=== PATIENT | male | born 1965 | race Two or more races ===

== ENCOUNTER 2019-05-27 13:44 | Emergency (ER) | payer MEDICAID ==
[~2019-05-27] VITALS: Ht 160 cm; Wt 54.4 kg
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
[2019-05-27 14:27] VITALS: BP 145/81
--- NOTE | 2019-05-27 14:32 | NUR ---
ED Nurse Note: Pt's skin intact.
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
[2019-05-27] MEDS ORDERED: TYLENOL EXTRA500 MG ORAL (15:06)
[2019-05-27] MEDS ORDERED: AUGMENTIN 875-1 EAC1 ORAL (15:06)
[2019-05-27] MEDS ORDERED: ROBAXIN-500MG ORAL (15:06)
[2019-05-27] MEDS ORDERED: MUPIROCIN15 GM TOPIC (15:06)
[2019-05-27 15:18] VITALS: BP 140/78
--- NOTE | 2019-05-27 15:18 | NUR ---
ER DISCHARGE NOTE: Patient is cleared to be discharged per ERPA, pt is aox4, on room air, with stable vital signs. pt was given dc and prescription instructions, pt was able to verbalize understanding, pt id band removed. pt is able to ambulate with steady gait. pt took all belongings.
--- NOTE | 2019-05-27 16:04 | Diagnostic Imaging Report ---
Indication: right leg pain Comparison: None Findings: Two views of the right tibia and fibula were obtained. No acute fracture, malalignment, or periosteal reaction are identified. Osteoarthritis of the knee and ankle noted. Soft tissues are unremarkable. Impression: No evidence of acute injury
== END 2019-05-27 15:18 | disposition home or self-care (01) ==
LOC: EMR 14:10
DX: S16.1XXA Strain of muscle, fascia and tendon at neck level, initial encounter (principal); S80.811A Abrasion, right lower leg, initial encounter; L08.9 Local infection of the skin and subcutaneous tissue, unspecified; S80.11XA Contusion of right lower leg, initial encounter; E11.9 Type 2 diabetes mellitus without complications; V43.52XA Car driver injured in collision with other type car in traffic accident, initial encounter; Y92.410 Unspecified street and highway as the place of occurrence of the external cause
CPT/HCPCS: 73590; Z7502; 99283